=== PATIENT | female | born 1995 | race Caucasian/White ===

== ENCOUNTER 2017-01-25 16:46 | Observation (INO) | payer MEDICAID ==
[~2017-01-25] VITALS: Ht 162.6 cm; Wt 112.0 kg
[~2017-01-25 16:46] MED LIST: BENZ100C4 PO; BENZOTROPINE PO; CLON0.1T PO; DIPH25TA24 PO; LEVO75TA5 PO; MIRT7.5T8 PO; MULT-276 PO; MULT1TAB PO; NORG1TAB6 PO; TOPI100P PO; TOPI25CA5 PO; ZIPR40CA3 PO
[2017-01-25 17:36] LABS: HEMOGLOBIN 13.6 g/dL (11.7-16.4)
[2017-01-25 17:49] LABS: BLOOD UREA NITROGEN 10 mg/dL (7-18)
[2017-01-25 17:55] LABS: ACETAMINOPHEN < 2 mcg/mL (10-30)
[2017-01-25 18:25] LABS: DAU SCREEN DISCLAIMER
[2017-01-25] MEDS ORDERED: MULT1TAB50 PO (19:07)
[2017-01-25] MEDS ORDERED: TRAZODONE 50MG TABLET PO PRN (21:30)
[2017-01-25 21:51] VITALS: BP 135/82
[2017-01-26] MEDS: LEVOTHYROXINE 75 MCG TABLET PO SCH (06:26)
[2017-01-26 07:58] VITALS: BP 119/82
[2017-01-26] MEDS: MULTIVITAMIN 1 TABLET PO SCH (08:22)
[2017-01-26] MEDS: ZIPRASIDONE 40MG CAPSULE PO SCH (08:23)
[2017-01-26] MEDS ORDERED: DIPHENHYDRAMINE 50 MG CAPSULE PO PRN (18:00)
[2017-01-26 19:30] VITALS: BP 153/88
[2017-01-26] MEDS: ACETAMINOPHEN 325 MG TABLET PO PRN (21:06)
[2017-01-27] MEDS: LEVOTHYROXINE 75 MCG TABLET PO SCH (06:30)
[2017-01-27 08:15] VITALS: BP 118/81
[2017-01-27] MEDS: ZIPRASIDONE 40MG CAPSULE PO SCH (08:21)
[2017-01-27] MEDS: MULTIVITAMIN 1 TABLET PO SCH (08:21)
[2017-01-27] MEDS: ACETAMINOPHEN 325 MG TABLET PO PRN (08:25)
== END 2017-01-27 14:26 ==
LOC: ED 18:42 → EDIP 20:02 → 3E 21:46
PROVIDERS: ADMIT Internal Medicine; ATTEND Internal Medicine
DX: R45.851 Suicidal ideations (principal); F33.2 Major depressive disorder, recurrent severe without psychotic features; E66.01 Morbid (severe) obesity due to excess calories; E03.9 Hypothyroidism, unspecified; I10 Essential (primary) hypertension
CPT/HCPCS: 36415; 80048; 80307; 80329; 82040; 84439; 84443; 84703; 85025; 99285; G0378; G0480

== ENCOUNTER 2017-02-09 19:02 | Observation (INO) | payer MEDICAID ==
[~2017-02-09] VITALS: Ht 162.6 cm; Wt 120.0 kg
[~2017-02-09 19:02] MED LIST changes: +MULT1TAB50 PO
[2017-02-09 20:02] LABS: BLOOD UREA NITROGEN 7 mg/dL (7-18)
[2017-02-09 20:07] LABS: ACETAMINOPHEN < 2 mcg/mL (10-30)
[2017-02-09 20:42] LABS: DAU SCREEN DISCLAIMER
[2017-02-09] MEDS ORDERED: HALOPERIDOL 5 MG/ML IM PRN (22:30)
[2017-02-09] MEDS ORDERED: ACETAMINOPHEN 325 MG TABLET PO PRN (22:30)
[2017-02-09] MEDS ORDERED: TRAZODONE 50MG TABLET PO PRN (22:30)
[2017-02-09] MEDS ORDERED: POLYETHYLENE GLYCOL 17 GM PACKET PO PRN (22:30)
[2017-02-09] MEDS ORDERED: ONDANSETRON ODT 4 MG PO PRN (22:30)
[2017-02-09] MEDS ORDERED: BISACODYL 10 MG SUPP PR PRN (22:30)
[2017-02-09] MEDS ORDERED: DOCUSATE 100 MG CAPSULE PO PRN (22:30)
[2017-02-09] MEDS: CEFDINIR 300 MG CAPSULE PO SCH (23:20)
[2017-02-09] MEDS: BENZTROPINE 1 MG TABLET PO SCH (23:21)
[2017-02-10 07:38] VITALS: BP 134/94
[2017-02-10] MEDS: TOPIRAMATE 25 MG TABLET PO SCH (08:11)
[2017-02-10] MEDS: ZIPRASIDONE 40MG CAPSULE PO SCH (08:11)
[2017-02-10] MEDS: LEVOTHYROXINE 75 MCG TABLET PO SCH (09:20)
[2017-02-10] MEDS: CEFDINIR 300 MG CAPSULE PO SCH ×2 (10:52→21:05)
[2017-02-10 19:40] VITALS: BP 138/77
[2017-02-10] MEDS: BENZTROPINE 1 MG TABLET PO SCH (21:04)
[2017-02-11 07:54] VITALS: BP 111/76
[2017-02-11] MEDS: ZIPRASIDONE 40MG CAPSULE PO SCH (08:37)
[2017-02-11] MEDS: TOPIRAMATE 25 MG TABLET PO SCH (08:37)
[2017-02-11] MEDS: LEVOTHYROXINE 75 MCG TABLET PO SCH (08:37)
[2017-02-11] MEDS: CEFDINIR 300 MG CAPSULE PO SCH ×2 (11:36→23:58)
[2017-02-11 19:57] VITALS: BP 155/84
[2017-02-11] MEDS: BENZTROPINE 1 MG TABLET PO SCH (21:32)
[2017-02-12 07:33] VITALS: BP 113/78
[2017-02-12] MEDS: TOPIRAMATE 25 MG TABLET PO SCH (08:49)
[2017-02-12] MEDS: LEVOTHYROXINE 75 MCG TABLET PO SCH (08:50)
[2017-02-12] MEDS: ZIPRASIDONE 40MG CAPSULE PO SCH (08:50)
[2017-02-12] MEDS: CEFDINIR 300 MG CAPSULE PO SCH ×2 (11:26→23:00)
[2017-02-12 19:38] VITALS: BP 114/79
[2017-02-12] MEDS: BENZTROPINE 1 MG TABLET PO SCH (21:32)
[2017-02-13 08:30] VITALS: BP 124/84
[2017-02-13] MEDS: LEVOTHYROXINE 75 MCG TABLET PO SCH (09:00)
[2017-02-13] MEDS: TOPIRAMATE 25 MG TABLET PO SCH (09:00)
[2017-02-13] MEDS: ZIPRASIDONE 40MG CAPSULE PO SCH (09:00)
[2017-02-13] MEDS: CEFDINIR 300 MG CAPSULE PO SCH ×2 (11:02→23:34)
[2017-02-13 20:16] VITALS: BP 117/75
[2017-02-13] MEDS: BENZTROPINE 1 MG TABLET PO SCH (21:59)
[2017-02-14 07:25] VITALS: BP 132/84
[2017-02-14] MEDS: TOPIRAMATE 25 MG TABLET PO SCH (09:00)
[2017-02-14] MEDS: LEVOTHYROXINE 75 MCG TABLET PO SCH (09:16)
[2017-02-14] MEDS: ZIPRASIDONE 40MG CAPSULE PO SCH (09:16)
[2017-02-14 19:38] VITALS: BP 124/83
[2017-02-14] MEDS: BENZTROPINE 1 MG TABLET PO SCH (20:26)
[2017-02-15 07:23] VITALS: BP 99/58
[2017-02-15] MEDS: LEVOTHYROXINE 75 MCG TABLET PO SCH (08:00)
[2017-02-15] MEDS: TOPIRAMATE 25 MG TABLET PO SCH (08:00)
[2017-02-15] MEDS: ZIPRASIDONE 40MG CAPSULE PO SCH (08:01)
[2017-02-15 10:00] VITALS: BP 135/83
[2017-02-15 19:24] VITALS: BP 148/92
[2017-02-15 19:50] VITALS: BP 134/91
[2017-02-15] MEDS: BENZTROPINE 1 MG TABLET PO SCH (20:19)
[2017-02-16 07:27] VITALS: BP 141/84
[2017-02-16] MEDS: LEVOTHYROXINE 75 MCG TABLET PO SCH (07:59)
[2017-02-16] MEDS: ZIPRASIDONE 40MG CAPSULE PO SCH (07:59)
[2017-02-16] MEDS: TOPIRAMATE 25 MG TABLET PO SCH (07:59)
== END 2017-02-16 17:53 | disposition home or self-care (01) ==
LOC: ED 20:49 → EDIP 21:57 → 3E 22:57
PROVIDERS: ADMIT Internal Medicine; ATTEND Internal Medicine
DX: R45.851 Suicidal ideations (principal); F31.9 Bipolar disorder, unspecified; F41.9 Anxiety disorder, unspecified; N39.0 Urinary tract infection, site not specified; E03.9 Hypothyroidism, unspecified; E66.9 Obesity, unspecified; Z91.5 Personal history of self-harm; Z83.3 Family history of diabetes mellitus; Z82.49 Family history of ischemic heart disease and other diseases of the circulatory system
CPT/HCPCS: 36415; 80048; 80307; 80329; 81001; 82040; 84439; 84443; 84703; 85025; 87086; 93005; 99285; G0378; Q0177; G0480

== ENCOUNTER 2017-03-13 02:11 | Observation (INO) | payer MEDICAID ==
[~2017-03-13] VITALS: Ht 162.6 cm; Wt 115.0 kg
[2017-03-13 02:46] LABS: ASPARTATE AMINO TRANSFERASE 14 U/L (15-37); BLOOD UREA NITROGEN 6 mg/dL (7-18)
[2017-03-13 02:52] LABS: ACETAMINOPHEN < 2 mcg/mL (10-30)
[2017-03-13 03:07] LABS: DAU SCREEN DISCLAIMER
[2017-03-13] MEDS ORDERED: POLYETHYLENE GLYCOL 17 GM PACKET PO PRN (08:00)
[2017-03-13] MEDS ORDERED: ACETAMINOPHEN 325 MG TABLET PO PRN (08:00)
[2017-03-13] MEDS ORDERED: ONDANSETRON ODT 4 MG PO PRN (08:00)
[2017-03-13] MEDS ORDERED: HALOPERIDOL 5 MG/ML IM PRN (08:00)
[2017-03-13] MEDS ORDERED: LORazepam 2 MG/ML, 1ML IM PRN (08:00)
[2017-03-13] MEDS ORDERED: POTASSIUM CHLORIDE 20 MEQ TAB.ER.PRT PO ONE (08:30)
[2017-03-13] MEDS ORDERED: LEVOTHYROXINE 75 MCG TABLET PO SCH (09:00)
[2017-03-13] MEDS ORDERED: ZIPRASIDONE 40MG CAPSULE PO SCH (09:00)
[2017-03-13 09:50] VITALS: BP 129/78
[2017-03-13 20:35] VITALS: BP 139/85
[2017-03-13] MEDS ORDERED: BENZTROPINE 1 MG TABLET PO SCH (21:00)
== END 2017-03-13 23:01 ==
LOC: ED 02:47 → EDIP 06:26 → 3E 09:32
PROVIDERS: ADMIT Hospitalist; ATTEND Internal Medicine
DX: T74.21XA Adult sexual abuse, confirmed, initial encounter (principal); F41.1 Generalized anxiety disorder; F33.2 Major depressive disorder, recurrent severe without psychotic features; F31.9 Bipolar disorder, unspecified; E66.9 Obesity, unspecified; I10 Essential (primary) hypertension; F43.0 Acute stress reaction; E87.6 Hypokalemia; R74.8 Abnormal levels of other serum enzymes; E66.01 Morbid (severe) obesity due to excess calories; R82.90 Unspecified abnormal findings in urine; Y92.89 Other specified places as the place of occurrence of the external cause; Z65.4 Victim of crime and terrorism
CPT/HCPCS: 36415; 76700; 80053; 80307; 80329; 81001; 84439; 84443; 84703; 85025; 87086; 99285; G0378; G0480

== ENCOUNTER 2017-03-24 21:32 | Emergency (ER) | payer MEDICAID ==
[~2017-03-24] VITALS: Ht 162.6 cm; Wt 120.0 kg
[2017-03-24 21:35] VITALS: BP 137/84
[2017-03-27] MEDS ORDERED: FLUO20CA8 PO (10:44)
== END 2017-03-25 00:08 | disposition home or self-care (01) ==
LOC: ED 22:14
DX: L08.9 Local infection of the skin and subcutaneous tissue, unspecified (principal); S30.861A Insect bite (nonvenomous) of abdominal wall, initial encounter; S80.262A Insect bite (nonvenomous), left knee, initial encounter; S80.261A Insect bite (nonvenomous), right knee, initial encounter; S83.92XA Sprain of unspecified site of left knee, initial encounter; S83.91XA Sprain of unspecified site of right knee, initial encounter; I10 Essential (primary) hypertension; F20.9 Schizophrenia, unspecified; Z86.718 Personal history of other venous thrombosis and embolism; W57.XXXA Bitten or stung by nonvenomous insect and other nonvenomous arthropods, initial encounter; Y93.89 Activity, other specified; Y99.8 Other external cause status; Y92.89 Other specified places as the place of occurrence of the external cause
CPT/HCPCS: 99284

== ENCOUNTER 2017-04-27 18:06 | Observation (INO) | payer MEDICAID ==
[~2017-04-27] VITALS: Ht 172.7 cm; Wt 110.0 kg
[~2017-04-27 18:06] MED LIST changes: +FLUO20CA8 PO
[2017-04-27 18:35] LABS: DAU SCREEN DISCLAIMER
[2017-04-27 18:49] LABS: ASPARTATE AMINO TRANSFERASE 14 U/L (15-37); BLOOD UREA NITROGEN 14 mg/dL (7-18)
[2017-04-27 18:51] LABS: HCG UR OBC PASS
[2017-04-27 18:54] LABS: ACETAMINOPHEN < 2 mcg/mL (10-30)
[2017-04-27] MEDS ORDERED: TRAZODONE 50MG TABLET PO PRN (21:00)
[2017-04-27] MEDS ORDERED: ONDANSETRON ODT 4 MG PO PRN (21:00)
[2017-04-27] MEDS ORDERED: LORazepam 1MG TABLET PO PRN (21:00)
[2017-04-27] MEDS ORDERED: BENZTROPINE 1 MG TABLET PO PRN (21:00)
[2017-04-27] MEDS ORDERED: LORazepam 2 MG/ML, 1ML IM PRN (21:00)
[2017-04-27] MEDS ORDERED: DOCUSATE 100 MG CAPSULE PO PRN (21:00)
[2017-04-27] MEDS ORDERED: ZIPRASIDONE 20MG CAPSULE PO ONE (21:00)
[2017-04-27] MEDS ORDERED: LORazepam 1MG TABLET PO ONE (21:00)
[2017-04-27] MEDS ORDERED: DIPHENHYDRAMINE 50 MG CAPSULE PO PRN (21:00)
[2017-04-27] MEDS ORDERED: ACETAMINOPHEN 325 MG TABLET PO PRN (21:00)
[2017-04-27] MEDS ORDERED: LORazepam 1MG TABLET ONE (21:18)
[2017-04-27] MEDS ORDERED: ZIPRASIDONE 20MG CAPSULE ONE (21:18)
[2017-04-27 22:00] VITALS: BP 133/88
[2017-04-28 07:43] VITALS: BP 117/75
[2017-04-28] MEDS ORDERED: LEVOTHYROXINE 75 MCG TABLET PO SCH (09:00)
[2017-04-28] MEDS ORDERED: FLUOXETINE 20 MG CAPSULE PO SCH (09:00)
[2017-04-28] MEDS ORDERED: ZIPRASIDONE 40MG CAPSULE PO SCH (09:00)
== END 2017-04-28 16:02 ==
LOC: ED 18:53 → EDIP 20:58 → 3E 21:41
PROVIDERS: ADMIT Internal Medicine; ATTEND Internal Medicine
DX: R45.851 Suicidal ideations (principal); F41.9 Anxiety disorder, unspecified; F31.9 Bipolar disorder, unspecified; F43.10 Post-traumatic stress disorder, unspecified; I10 Essential (primary) hypertension
CPT/HCPCS: 36415; 80053; 80307; 80329; 81025; 84443; 85025; 99285; G0378; G0480

== ENCOUNTER 2017-05-10 09:51 | Observation (INO) | payer MEDICAID ==
[~2017-05-10] VITALS: Ht 175.3 cm; Wt 110.0 kg
[2017-05-10 11:24] LABS: DAU SCREEN DISCLAIMER
[2017-05-10 11:32] LABS: BLOOD UREA NITROGEN 13 mg/dL (7-18)
[2017-05-10 11:35] LABS: HCG UR OBC PASS
[2017-05-10 11:38] LABS: ACETAMINOPHEN < 2 mcg/mL (10-30)
[2017-05-10] MEDS ORDERED: POLYETHYLENE GLYCOL 17 GM PACKET PO PRN (14:30)
[2017-05-10] MEDS ORDERED: BISACODYL 10 MG SUPP PR PRN (14:30)
[2017-05-10] MEDS ORDERED: ONDANSETRON ODT 4 MG PO PRN (14:30)
[2017-05-10] MEDS ORDERED: DOCUSATE 100 MG CAPSULE PO PRN (14:30)
[2017-05-10] MEDS ORDERED: LEVOTHYROXINE 75 MCG TABLET PO SCH (20:30)
[2017-05-10] MEDS ORDERED: hydrOXyzine 50MG TABLET PO ONE (21:00)
[2017-05-10] MEDS: BENZTROPINE 1 MG TABLET PO SCH (22:14)
[2017-05-11] MEDS: FLUOXETINE 20 MG CAPSULE PO SCH (08:13)
[2017-05-11] MEDS: ZIPRASIDONE 40MG CAPSULE PO SCH (08:13)
[2017-05-11 08:47] LABS: PATH.CAST-FLAG NOT PRESENT; SPERM-FLAG NOT PRESENT; SRC-FLAG NOT PRESENT; XTAL-FLAG NOT PRESENT; YLC-FLAG NOT PRESENT
[2017-05-11] MEDS ORDERED: TOPIRAMATE 25 MG TABLET PO SCH (09:00)
[2017-05-11] MEDS: BENZTROPINE 1 MG TABLET PO SCH (21:18)
[2017-05-12] MEDS: FLUOXETINE 20 MG CAPSULE PO SCH (09:25)
[2017-05-12] MEDS: ZIPRASIDONE 40MG CAPSULE PO SCH (09:25)
[2017-05-12] MEDS ORDERED: HYDR50CA PO (10:54)
[2017-05-12] MEDS ORDERED: hydrOXyzine 10MG TABLET PO PRN (11:30)
[2017-05-12] MEDS ORDERED: ACETAMINOPHEN 325 MG TABLET PO PRN (11:30)
[2017-05-12 19:35] VITALS: BP 134/83
[2017-05-12] MEDS: BENZTROPINE 1 MG TABLET PO SCH (20:35)
[2017-05-13 07:24] VITALS: BP 115/74
[2017-05-13] MEDS: ZIPRASIDONE 40MG CAPSULE PO SCH (09:00)
[2017-05-13] MEDS: CITALOPRAM 20 MG TABLET PO SCH (09:00)
[2017-05-13 19:45] VITALS: BP 101/61
[2017-05-13] MEDS: BENZTROPINE 1 MG TABLET PO SCH (21:15)
[2017-05-14 07:25] VITALS: BP 135/95
[2017-05-14] MEDS: CITALOPRAM 20 MG TABLET PO SCH (09:12)
[2017-05-14] MEDS: ZIPRASIDONE 40MG CAPSULE PO SCH (09:12)
== END 2017-05-14 11:30 | disposition home or self-care (01) ==
LOC: ED 13:39 → EDIP 13:51 → 3E 05-12 18:50
PROVIDERS: ADMIT Internal Medicine; ATTEND Internal Medicine
DX: R45.851 Suicidal ideations (principal); F41.9 Anxiety disorder, unspecified; F31.9 Bipolar disorder, unspecified; F43.10 Post-traumatic stress disorder, unspecified; I10 Essential (primary) hypertension; F20.9 Schizophrenia, unspecified; F60.3 Borderline personality disorder
CPT/HCPCS: 36415; 80048; 80307; 80329; 81001; 81025; 82040; 84439; 84443; 85025; 87086; 99285; G0378; G0480

== ENCOUNTER 2017-05-31 12:01 | Emergency (ER) | payer MEDICAID ==
[~2017-05-31] VITALS: Ht 162.6 cm; Wt 117.2 kg
[~2017-05-31 12:01] MED LIST changes: +HYDR50CA PO
[2017-05-31] MEDS ORDERED: SODIUM CHLORIDE 0.9% 1,000ML IVBOLUS ONE (13:30)
[2017-05-31] MEDS ORDERED: MORPHINE SULFATE 4 MG/ML, 1ML IVPush PRN (13:30)
[2017-05-31] MEDS ORDERED: KETOROLAC 30 MG/1 ML IVPush ONE (13:30)
[2017-05-31] MEDS ORDERED: ONDANSETRON 2MG/ML, 2ML IVPush ONE (13:30)
[2017-05-31] MEDS ORDERED: SODIUM CHLORIDE FLUSH 10ML SYR IVF ONE (13:30)
[2017-05-31 13:32] LABS: HEMATOCRIT 44.6 % (34.6-47.8); HEMOGLOBIN 15.2 g/dL (11.7-16.4); WHITE BLOOD COUNT 7.6 x10^3/uL (4.5-13.2)
[2017-05-31] MEDS ORDERED: MORPHINE SULFATE 4 MG/ML, 1ML ONE (13:41)
[2017-05-31] MEDS ORDERED: ONDANSETRON 2MG/ML, 2ML ONE (13:41)
[2017-05-31] MEDS ORDERED: KETOROLAC 30 MG/1 ML ONE (13:41)
[2017-05-31 13:45] LABS: ASPARTATE AMINO TRANSFERASE 9 U/L (15-37); BLOOD UREA NITROGEN 16 mg/dL (7-18)
[2017-05-31 15:29] VITALS: BP 125/55
== END 2017-05-31 16:49 | disposition home or self-care (01) ==
LOC: ED 15:02
DX: N12 Tubulo-interstitial nephritis, not specified as acute or chronic (principal); I10 Essential (primary) hypertension
CPT/HCPCS: 36415; 80053; 81001; 83690; 85025; 87086; 96361; 96374; 96375; 99285; J1885; J2405; J7030

== ENCOUNTER 2017-06-29 10:02 | Emergency (ER) | payer MEDICAID ==
[~2017-06-29] VITALS: Ht 162.6 cm; Wt 115.4 kg
[~2017-06-29 10:02] MED LIST changes: +BENZ100C17 PO; -BENZ100C4 PO
[2017-06-29 10:14] VITALS: BP 137/87
[2017-06-29] MEDS ORDERED: BENZ0.5T PO (11:29)
[2017-06-29] MEDS ORDERED: TOPI50TA8 PO (11:31)
[2017-06-29] MEDS ORDERED: ONDANSETRON ODT 4 MG PO ONE (12:30)
[2017-06-29] MEDS ORDERED: ONDANSETRON ODT 4 MG ONE (12:42)
[2017-06-29 12:47] LABS: HEMATOCRIT 45.3 % (34.6-47.8); HEMOGLOBIN 15.4 g/dL (11.7-16.4); WHITE BLOOD COUNT 9.4 x10^3/uL (4.5-13.2)
[2017-06-29 13:04] LABS: ASPARTATE AMINO TRANSFERASE 14 U/L (15-37); BLOOD UREA NITROGEN 9 mg/dL (7-18)
== END 2017-06-29 14:01 | disposition home or self-care (01) ==
LOC: ED 11:50
DX: R10.31 Right lower quadrant pain (principal); F41.9 Anxiety disorder, unspecified; I10 Essential (primary) hypertension
CPT/HCPCS: 36415; 76830; 80053; 81001; 83690; 84703; 85025; 87086; 99285; Q0162

== ENCOUNTER 2017-10-25 20:39 | Observation (INO) | payer MEDICAID ==
[~2017-10-25] VITALS: Ht 162.6 cm; Wt 120.0 kg
[~2017-10-25 20:39] MED LIST changes: +BENZ-17 PO; +BENZ0.5T PO; -BENZ100C17 PO; +GABA100C PO; +LEVO75TA PO; +TOPI50TA8 PO; +ZIPR20CA2 PO
[2017-10-25] MEDS ORDERED: PANT20TA3 PO (20:58)
[2017-10-25] MEDS ORDERED: TOPI15CA PO (20:58)
[2017-10-25] MEDS ORDERED: IBUP200C5 PO (20:59)
[2017-10-25] MEDS ORDERED: DIPH12.532 PO (20:59)
[2017-10-25] MEDS ORDERED: HYDR25CA94 PO (20:59)
[2017-10-25 21:30] LABS: AMPHETAMINE SCREEN, URINE Negative (Negative); BARBITURATE SCREEN, URINE Negative (Negative); BENZODIAZEPINE SCREEN, URINE Negative (Negative); CANNABINOID SCREEN, URINE Negative (Negative); COCAINE SCREEN, URINE Negative (Negative); METHADONE SCREEN, URINE Negative (Negative); OPIATE SCREEN, URINE Negative (Negative)
[2017-10-25 21:33] LABS: MD SCAN; MEAN CORPUSCULAR HEMOGLOBIN 31.2 pg (27.0-34.8); MEAN CORPUSCULAR HGB CONC 33.8 g/dL (32.4-35.8); MEAN CORPUSCULAR VOLUME 92.1 fL (80-100); MEAN PLATELET VOLUME 11.8 fL (7.4-10.4); PLATELET COUNT 185 x10^3/uL (130-400); RED BLOOD COUNT 4.43 x10^6/uL (3.82-5.3); RED CELL DISTRIBUTION WIDTH 13.5 % (9.6-15.2)
[2017-10-25 21:34] LABS: ALBUMIN 3.3 g/dL (3.4-5.0); ANION GAP 9 mmol/L (5-15); BASOPHILS # (AUTO) 0.12 x10^3/uL (0-0.3); BASOPHILS % (AUTO) 1 % (0-1); CHLORIDE 112 mmol/L (98-107); CREATININE 0.81 mg/dL (0.55-1.02); EOSINOPHILS # (AUTO) 0.44 x10^3/uL (0-0.8); EOSINOPHILS % (AUTO) 3 % (1-7); LYMPHOCYTES % (AUTO) 40 % (22-44); MONOCYTES # (AUTO) 0.98 x10^3/uL (0-1.4); MONOCYTES % (AUTO) 7 % (2-9); NEUTROPHILS # (AUTO) 6.31 x10^3/uL (1.8-8.0); NEUTROPHILS % (AUTO) 48 % (42-75)
[2017-10-25 21:35] LABS: SALICYLATE LEVEL < 1.7 mg/dL (2.8-20.0)
[2017-10-25 21:36] LABS: ACETAMINOPHEN < 2 mcg/mL (10-30)
[2017-10-26 02:10] LABS: FREE T4 (FREE THYROXINE) 1.05 ng/dL (0.76-1.46); THYROID STIMULATING HORMONE 2.96 mIU/L (0.358-3.740)
[2017-10-26 05:00] LABS: MICROSCOPIC NOT IND
[2017-10-26 05:02] LABS: CULTURE INDICATED? NO
[2017-10-26] MEDS ORDERED: ACETAMINOPHEN 325 MG TABLET ONE (13:35)
[2017-10-26] MEDS ORDERED: ACETAMINOPHEN 325 MG TABLET PO PRN (14:00)
[2017-10-26] MEDS ORDERED: LORazepam 1MG TABLET PO PRN (14:00)
[2017-10-26] MEDS ORDERED: BACITRACIN ZINC OINT 500U/GM, 0.9 GM ONE (18:10)
[2017-10-26 19:22] VITALS: BP 111/77
== END 2017-10-26 19:49 ==
LOC: ED 22:59 → EDIP 23:04 → ED 23:29
PROVIDERS: ADMIT Internal Medicine; ATTEND Internal Medicine
DX: R45.851 Suicidal ideations (principal); F33.9 Major depressive disorder, recurrent, unspecified; E03.9 Hypothyroidism, unspecified; F99 Mental disorder, not otherwise specified
CPT/HCPCS: 36415; 80048; 80307; 80329; 81003; 82040; 84439; 84443; 84703; 85025; 99285; G0378; G0480

== ENCOUNTER 2017-12-22 13:23 | Observation (INO) | payer MEDICAID ==
[~2017-12-22] VITALS: Ht 162.6 cm; Wt 115.5 kg
[~2017-12-22 13:23] MED LIST changes: +BUPR200T31 PO; +CITA10TA4 PO; +DIPH12.532 PO; +GABA300C10 PO; +HYDR25CA94 PO; +IBUP200C5 PO; +PANT20TA3 PO; +TOPI15CA PO
[2017-12-22 14:18] LABS: BASOPHILS # (AUTO) 0.11 x10^3/uL (0-0.3); BASOPHILS % (AUTO) 1 % (0-1); EOSINOPHILS % (AUTO) 2 % (1-7); LYMPHOCYTES % (AUTO) 28 % (22-44); MD NO; MEAN CORPUSCULAR HEMOGLOBIN 31.6 pg (27.0-34.8); MEAN CORPUSCULAR HGB CONC 34.3 g/dL (32.4-35.8); MEAN CORPUSCULAR VOLUME 92.1 fL (80-100); MEAN PLATELET VOLUME 10.4 fL (7.4-10.4); MONOCYTES % (AUTO) 6 % (2-9); NEUTROPHILS # (AUTO) 7.72 x10^3/uL (1.8-8.0); NEUTROPHILS % (AUTO) 64 % (42-75); PLATELET COUNT 207 x10^3/uL (130-400); RED BLOOD COUNT 4.71 x10^6/uL (3.82-5.3); RED CELL DISTRIBUTION WIDTH 13.7 % (9.6-15.2)
[2017-12-22 14:28] LABS: ALBUMIN 3.7 g/dL (3.4-5.0); ANION GAP 7 mmol/L (5-15); CALCIUM 9.1 mg/dL (8.5-10.1); CHLORIDE 108 mmol/L (98-107)
[2017-12-22 14:30] LABS: SALICYLATE LEVEL < 1.7 mg/dL (2.8-20.0)
[2017-12-22 14:34] LABS: ALANINE AMINOTRANSFERASE 34 U/L (12-78); ALKALINE PHOSPHATASE 157 U/L (45-117); BILIRUBIN,TOTAL 0.5 mg/dL (0.2-1.0); CREATININE 0.89 mg/dL (0.55-1.02); TOTAL PROTEIN 7.9 g/dL (6.4-8.2)
[2017-12-22 14:35] LABS: ACETAMINOPHEN < 2 mcg/mL (10-30)
[2017-12-22 17:10] LABS: AMPHETAMINE SCREEN, URINE Negative (Negative); BARBITURATE SCREEN, URINE Negative (Negative); BENZODIAZEPINE SCREEN, URINE Negative (Negative); CANNABINOID SCREEN, URINE Negative (Negative); COCAINE SCREEN, URINE Negative (Negative); METHADONE SCREEN, URINE Negative (Negative); OPIATE SCREEN, URINE Negative (Negative)
[2017-12-22] MEDS ORDERED: LORazepam 1MG TABLET PO ONE (20:00)
[2017-12-22] MEDS ORDERED: LORazepam 1MG TABLET ONE (20:00)
[2017-12-22] MEDS ORDERED: LORazepam 2 MG/ML, 1ML IM PRN (20:30)
[2017-12-22] MEDS ORDERED: ONDANSETRON ODT 4 MG PO PRN (20:30)
[2017-12-22] MEDS ORDERED: OLANZAPINE 5 MG TABLET PO PRN (20:30)
[2017-12-22] MEDS ORDERED: OLANZAPINE 10 MG INJ IM PRN (20:30)
[2017-12-22 21:25] VITALS: BP 145/92
[2017-12-23 07:40] VITALS: BP 137/79
[2017-12-23] MEDS: ACETAMINOPHEN 325 MG TABLET PO PRN (14:37)
[2017-12-23] MEDS: LORazepam 1MG TABLET PO PRN (17:32)
[2017-12-23 20:00] VITALS: BP 119/76
[2017-12-24 07:30] VITALS: BP 123/84
[2017-12-24 19:45] VITALS: BP 115/70
[2017-12-24] MEDS: LORazepam 1MG TABLET PO PRN (21:45)
[2017-12-25 08:22] VITALS: BP 125/87
[2017-12-25] MEDS: LORazepam 1MG TABLET PO PRN (18:09)
[2017-12-25] MEDS: ACETAMINOPHEN 325 MG TABLET PO PRN (18:09)
[2017-12-26 07:00] VITALS: BP 127/84
[2017-12-26 19:33] VITALS: BP 118/71
[2017-12-26] MEDS: ACETAMINOPHEN 325 MG TABLET PO PRN (20:17)
[2017-12-26] MEDS: LORazepam 1MG TABLET PO PRN (20:17)
[2017-12-27] MEDS: LORazepam 1MG TABLET PO PRN (04:58)
[2017-12-27 09:07] VITALS: BP 117/77
[2017-12-27 19:35] VITALS: BP 167/91
[2017-12-27 19:47] VITALS: BP 136/82
[2017-12-28 08:18] VITALS: BP_SYST 100; BP_SYST 127; BP_DIAS 47; BP_DIAS 84
[2017-12-28 20:21] VITALS: BP 122/82
[2017-12-28] MEDS: GABAPENTIN 100 MG CAPSULE PO SCH (20:24)
[2017-12-29] MEDS: LEVOTHYROXINE 75 MCG TABLET PO SCH (08:00)
[2017-12-29 08:11] VITALS: BP 120/82
[2017-12-29] MEDS: CITALOPRAM 10 MG TABLET PO SCH (08:24)
[2017-12-29] MEDS: GABAPENTIN 100 MG CAPSULE PO SCH ×2 (08:24→20:59)
[2017-12-29 19:42] VITALS: BP 138/84
[2017-12-29] MEDS: LORazepam 1MG TABLET PO PRN (21:00)
[2017-12-30] MEDS: LEVOTHYROXINE 75 MCG TABLET PO SCH (07:47)
[2017-12-30 08:01] VITALS: BP 130/86
[2017-12-30] MEDS: GABAPENTIN 100 MG CAPSULE PO SCH ×2 (08:14→20:16)
[2017-12-30] MEDS: CITALOPRAM 10 MG TABLET PO SCH (08:14)
[2017-12-30] MEDS: LORazepam 1MG TABLET PO PRN (14:09)
[2017-12-30 21:11] VITALS: BP 165/90
[2017-12-31] MEDS: LEVOTHYROXINE 75 MCG TABLET PO SCH (07:00)
[2017-12-31 07:52] VITALS: BP 122/79
[2017-12-31] MEDS: GABAPENTIN 100 MG CAPSULE PO SCH ×2 (09:09→20:26)
[2017-12-31] MEDS: CITALOPRAM 10 MG TABLET PO SCH (09:09)
[2017-12-31 19:25] VITALS: BP 152/84
[2017-12-31] MEDS: LORazepam 1MG TABLET PO PRN (20:27)
[2018-01-01] MEDS: CITALOPRAM 10 MG TABLET PO SCH (07:29)
[2018-01-01] MEDS: GABAPENTIN 100 MG CAPSULE PO SCH ×2 (07:29→20:19)
[2018-01-01] MEDS: LEVOTHYROXINE 75 MCG TABLET PO SCH (07:29)
[2018-01-01 08:38] VITALS: BP 110/77
[2018-01-01 20:12] VITALS: BP 123/63
[2018-01-01] MEDS: LORazepam 1MG TABLET PO PRN (20:19)
[2018-01-02] MEDS: LEVOTHYROXINE 75 MCG TABLET PO SCH (07:00)
[2018-01-02 08:54] VITALS: BP 141/84
[2018-01-02] MEDS: GABAPENTIN 100 MG CAPSULE PO SCH ×2 (09:30→20:31)
[2018-01-02] MEDS: CITALOPRAM 10 MG TABLET PO SCH (09:30)
[2018-01-02 20:22] VITALS: BP 118/89
[2018-01-02] MEDS: LORazepam 1MG TABLET PO PRN (20:31)
[2018-01-03] MEDS: LEVOTHYROXINE 75 MCG TABLET PO SCH (07:00)
[2018-01-03 08:00] VITALS: BP 140/90
[2018-01-03] MEDS: CITALOPRAM 10 MG TABLET PO SCH (08:05)
[2018-01-03] MEDS: GABAPENTIN 100 MG CAPSULE PO SCH ×2 (08:05→20:41)
[2018-01-03 19:58] VITALS: BP 152/79
[2018-01-04] MEDS: LEVOTHYROXINE 75 MCG TABLET PO SCH (06:07)
[2018-01-04 08:26] VITALS: BP 124/83
[2018-01-04] MEDS: GABAPENTIN 100 MG CAPSULE PO SCH ×2 (09:42→20:28)
[2018-01-04] MEDS: CITALOPRAM 10 MG TABLET PO SCH (09:42)
[2018-01-04 19:56] VITALS: BP 119/82
[2018-01-04] MEDS: LORazepam 1MG TABLET PO PRN (20:28)
[2018-01-05 08:28] VITALS: BP 125/83
[2018-01-05] MEDS: CITALOPRAM 10 MG TABLET PO SCH (08:47)
[2018-01-05] MEDS: LEVOTHYROXINE 75 MCG TABLET PO SCH (08:47)
[2018-01-05] MEDS: GABAPENTIN 100 MG CAPSULE PO SCH (08:47)
[2018-01-05] MEDS: ACETAMINOPHEN 325 MG TABLET PO PRN (09:51)
== END 2018-01-05 13:00 ==
LOC: ED 15:18 → SUATTDRO 20:07 → INTOOBSV 20:20 → EDIP 20:20 → OBSVTOIN 20:20 → 2N 21:22 → 3E 12-29 17:46
PROVIDERS: ADMIT Hospitalist; ATTEND Family Medicine
DX: F43.20 Adjustment disorder, unspecified (principal); R45.851 Suicidal ideations; F33.9 Major depressive disorder, recurrent, unspecified; R45.850 Homicidal ideations; F43.10 Post-traumatic stress disorder, unspecified; E03.9 Hypothyroidism, unspecified; E86.0 Dehydration; Z91.5 Personal history of self-harm
CPT/HCPCS: 36415; 80053; 80307; 80329; 84703; 85025; 96372; 99285; G0378; J2060; G0480

== ENCOUNTER 2018-08-10 12:05 | Observation (INO) | payer MEDICAID, MEDICARE, OTHER ==
[~2018-08-10] VITALS: Ht 162.6 cm; Wt 110.0 kg
[~2018-08-10 12:05] MED LIST changes: -BENZ0.5T PO; +BENZ0.5T35 PO; +IBUP-1623 PO; -IBUP200C5 PO
[2018-08-10 12:35] LABS: BASOPHILS # (AUTO) 0.05 x10^3/uL (0-0.1); BASOPHILS % (AUTO) 0 % (0-1); EOSINOPHILS # (AUTO) 0.15 x10^3/uL (0-0.4); EOSINOPHILS % (AUTO) 1 % (1-7); LYMPHOCYTES # (AUTO) 3.49 x10^3/uL (1-3.4); LYMPHOCYTES % (AUTO) 30 % (22-44); MD NO; MEAN CORPUSCULAR HEMOGLOBIN 30.7 pg (27.0-34.8); MEAN CORPUSCULAR HGB CONC 33.8 g/dL (32.4-35.8); MEAN CORPUSCULAR VOLUME 90.6 fL (80-100); MEAN PLATELET VOLUME 11.9 fL (7.4-10.4); MONOCYTES # (AUTO) 0.74 x10^3/uL (0.2-0.8); MONOCYTES % (AUTO) 6 % (2-9); NEUTROPHILS % (AUTO) 63 % (42-75); PLATELET COUNT 214 x10^3/uL (130-400); RED BLOOD COUNT 4.79 x10^6/uL (3.82-5.3); RED CELL DISTRIBUTION WIDTH 13.4 % (9.6-15.2)
[2018-08-10 12:39] LABS: CHLORIDE 108 mmol/L (98-107)
[2018-08-10 12:44] LABS: ANION GAP 7 mmol/L (5-15); CALCIUM 9.5 mg/dL (8.5-10.1); CREATININE 0.85 mg/dL (0.55-1.02); SALICYLATE LEVEL 1.9 mg/dL (2.8-20.0)
[2018-08-10] MEDS ORDERED: LAMO25TB7 PO (12:46)
[2018-08-10] MEDS ORDERED: IBUP-1623 PO (12:46)
[2018-08-10] MEDS ORDERED: BUPR150T73 PO (12:46)
[2018-08-10] MEDS ORDERED: OMEP-110 PO (12:46)
[2018-08-10 12:57] LABS: ACETAMINOPHEN < 2 mcg/mL (10-30)
[2018-08-10 13:04] LABS: HCG UR SG 1.025 (1.003-1.030)
[2018-08-10 13:22] LABS: AMPHETAMINE SCREEN, URINE Negative (Negative); BARBITURATE SCREEN, URINE Negative (Negative); BENZODIAZEPINE SCREEN, URINE Negative (Negative); CANNABINOID SCREEN, URINE Negative (Negative); COCAINE SCREEN, URINE Negative (Negative); METHADONE SCREEN, URINE Negative (Negative); OPIATE SCREEN, URINE Negative (Negative)
[2018-08-10] MEDS ORDERED: LORazepam 1MG TABLET ONE (13:44)
[2018-08-10] MEDS ORDERED: LORazepam 1MG TABLET PO ONE (14:00)
[2018-08-10] MEDS ORDERED: ONDANSETRON ODT 4 MG PO PRN (16:30)
[2018-08-10 18:35] VITALS: BP 135/90
[2018-08-10 19:42] VITALS: BP 136/81
[2018-08-10] MEDS: ACETAMINOPHEN 325 MG TABLET PO PRN (21:17)
[2018-08-11 07:58] VITALS: BP 136/80
[2018-08-11] MEDS: ACETAMINOPHEN 325 MG TABLET PO PRN (15:35)
[2018-08-11 19:21] VITALS: BP 119/73
[2018-08-11] MEDS: LAMOTRIGINE 25 MG TABLET PO SCH (21:07)
[2018-08-12 08:17] VITALS: BP 120/57
[2018-08-12] MEDS: BUPROPION 75 MG TABLET PO SCH (08:32)
[2018-08-12] MEDS: LORazepam 1MG TABLET PO PRN ×2 (08:37→20:03)
[2018-08-12 19:44] VITALS: BP 134/83
[2018-08-12] MEDS: LAMOTRIGINE 25 MG TABLET PO SCH (20:03)
[2018-08-13 08:00] VITALS: BP 138/89
[2018-08-13] MEDS: LORazepam 1MG TABLET PO PRN (08:20)
[2018-08-13] MEDS: BUPROPION 75 MG TABLET PO SCH (08:20)
[2018-08-13] MEDS: ACETAMINOPHEN 325 MG TABLET PO PRN (09:18)
[2018-08-13 19:51] VITALS: BP 130/86
[2018-08-13] MEDS: LAMOTRIGINE 25 MG TABLET PO SCH (20:03)
[2018-08-14 07:50] VITALS: BP 115/79
[2018-08-14] MEDS: BUPROPION 75 MG TABLET PO SCH (08:39)
[2018-08-14] MEDS: LORazepam 1MG TABLET PO PRN ×2 (10:15→22:52)
[2018-08-14 19:35] VITALS: BP 119/83
[2018-08-14] MEDS: LAMOTRIGINE 25 MG TABLET PO SCH (19:51)
[2018-08-15 08:20] VITALS: BP 113/80
[2018-08-15] MEDS: BUPROPION 75 MG TABLET PO SCH (08:32)
[2018-08-15 19:06] VITALS: BP 129/87
[2018-08-15] MEDS: LAMOTRIGINE 25 MG TABLET PO SCH (20:07)
[2018-08-15] MEDS: LORazepam 1MG TABLET PO PRN (21:51)
[2018-08-15] MEDS: ACETAMINOPHEN 325 MG TABLET PO PRN (21:51)
[2018-08-16 07:35] VITALS: BP 113/78
[2018-08-16] MEDS: BUPROPION 75 MG TABLET PO SCH (08:37)
== END 2018-08-16 13:54 | disposition home or self-care (01) ==
LOC: ED 13:38 → EDIP 13:39 → ED 13:56 → 2N 18:47
PROVIDERS: ADMIT Internal Medicine; ATTEND Internal Medicine
DX: R45.851 Suicidal ideations (principal); R45.850 Homicidal ideations; E03.9 Hypothyroidism, unspecified; F31.9 Bipolar disorder, unspecified; F41.1 Generalized anxiety disorder; F60.3 Borderline personality disorder
CPT/HCPCS: 36415; 80048; 80307; 80329; 81025; 82040; 84443; 85025; 99285; G0378; G0480

== ENCOUNTER 2018-12-05 17:43 | Emergency (ER) | payer MEDICARE, MEDICAID ==
[~2018-12-05] VITALS: Ht 167.6 cm; Wt 119.0 kg
[~2018-12-05 17:43] MED LIST changes: +BUPR150T73 PO; -CLON0.1T PO; +CLON0.1T22 PO; +LAMO25TB7 PO; +OMEP-110 PO
[2018-12-05 17:47] VITALS: BP 131/75
--- NOTE | 2018-12-05 18:00 | NUR ---
PT A&OX4, RESP EVEN & UNLABORED, SPEECH CLEAR. PT STATES "I'M NOT HERE ON A LEGAL AND I WANT TO GO HOME" WHEN ASKED ABOUT SI, PT STATED SHE WAS JUST UNDER STRESS AND HAD SI "AT THE MOMENT" "I DON'T HAVE IT NOW". ADMITS TO PAST SI. PT ASKED "DO I HAVE TO PEE IN A CUP? 'ETIENNE I HAVE TO PEE NOW". PT IN HOSP GOWN & BRA, AMBULATORY TO BR W/ STEADY GAIT. PERSONAL BELONGINGS BAGGED, EXCEPT FOR PURPLE FLEECE BLANKET AND RAINBOW COLORED STUFFED BEAR. BELONGINGS WILL BE PLACED IN ED LOCKER.
--- NOTE | 2018-12-05 18:05 | NUR ---
PT RETURNED TO ED ROOM 3 W/OUT INCIDENT. 10ML VOIDED URINE IN SPECIMEN CUP. PT DISPLEASED THAT BELONGINGS HAVE BEEN BAGGED. STATES " SOON THE DOCTOR CHECKS ME OUT, I'M LEAVING" INFORMED PT THAT SHE'S BEEN THROUGH THE ROUTINE ENOUGH THAT SHE KNOWS HOW IT WORKS.
[2018-12-05] MEDS ORDERED: BUPR150T13 PO (18:09)
--- NOTE | 2018-12-05 19:01 | NUR ---
[facility] ORDER CANCELLED EARLIER PER TORSTEN KEARNS. PT TO BE DISCHARGED. PT BELONGINGS RETRIEVED AND RETURNED TO PT.
== END 2018-12-05 19:06 | disposition home or self-care (01) ==
LOC: ED 19:00
DX: F32.0 Major depressive disorder, single episode, mild (principal); F41.1 Generalized anxiety disorder; E03.9 Hypothyroidism, unspecified; I10 Essential (primary) hypertension
CPT/HCPCS: 99283

== ENCOUNTER 2019-08-22 12:41 | Inpatient (IN) | payer MEDICARE, OTHER ==
[~2019-08-22] VITALS: Ht 167.6 cm; Wt 114.0 kg
[~2019-08-22 12:41] MED LIST changes: +BUPR150T13 PO; -TOPI15CA PO; +TOPI15CA10 PO
[2019-08-22] MEDS ORDERED: TRAZ-137 PO (13:46)
[2019-08-22] MEDS ORDERED: RISP2TAB3 PO (13:46)
[2019-08-22 13:54] LABS: ALBUMIN 3.7 g/dL (3.4-5.0); ANION GAP 5 mmol/L (5-15); CALCIUM 9.1 mg/dL (8.5-10.1); CHLORIDE 108 mmol/L (98-107)
[2019-08-22] MEDS ORDERED: KETOROLAC 60 MG/2 ML ONE (13:54)
[2019-08-22 13:55] LABS: CREATININE 0.76 mg/dL (0.55-1.02)
[2019-08-22] MEDS ORDERED: ONDANSETRON ODT 4 MG ONE (13:55)
[2019-08-22] MEDS ORDERED: KETOROLAC 30 MG/1 ML IM ONE (14:00)
[2019-08-22] MEDS ORDERED: ONDANSETRON ODT 4 MG PO ONE (14:00)
[2019-08-22 14:06] LABS: BASOPHILS # (AUTO) 0.07 x10^3/uL (0-0.1); BASOPHILS % (AUTO) 1 % (0-1); EOSINOPHILS # (AUTO) 0.27 x10^3/uL (0-0.4); EOSINOPHILS % (AUTO) 2 % (1-7); LYMPHOCYTES # (AUTO) 3.21 x10^3/uL (1-3.4); LYMPHOCYTES % (AUTO) 26 % (22-44); MD NO; MEAN CORPUSCULAR HEMOGLOBIN 31.8 pg (27.0-34.8); MEAN CORPUSCULAR HGB CONC 33.4 g/dL (32.4-35.8); MEAN PLATELET VOLUME 10.7 fL (7.4-10.4); MONOCYTES # (AUTO) 0.78 x10^3/uL (0.2-0.8); MONOCYTES % (AUTO) 6 % (2-9); NEUTROPHILS # (AUTO) 7.83 x10^3/uL (1.8-6.8); NEUTROPHILS % (AUTO) 64 % (42-75); PLATELET COUNT 212 x10^3/uL (130-400); RED BLOOD COUNT 4.71 x10^6/uL (3.82-5.3)
[2019-08-22 14:48] LABS: HCG UR SG 1.018 (1.003-1.030); MICROSCOPIC AUTO
[2019-08-22 14:50] LABS: CULTURE INDICATED? YES
[2019-08-22] MEDS ORDERED: CEFTRIAXONE PMX 2GM/50ML 50 ML IV ONE (15:30)
[2019-08-22] MEDS ORDERED: CEFTRIAXONE PMX 2GM/50ML 50 ML ONE (15:34)
[2019-08-22] MEDS ORDERED: IBUPROFEN 600 MG TABLET PO PRN (16:00)
[2019-08-22] MEDS ORDERED: SODIUM CHLORIDE 0.9% 1,000 ML IV SCH (16:00)
[2019-08-22] MEDS: CEFTRIAXONE PMX 2GM/50ML 50 ML IV SCH (16:00)
[2019-08-22] MEDS ORDERED: ONDANSETRON 2MG/ML, 2ML IVPush PRN (16:00)
[2019-08-22 17:05] VITALS: BP 143/88
[2019-08-22 17:33] VITALS: BP 143/88
[2019-08-22] MEDS: SODIUM CHLORIDE 0.9% 1,000 ML IV SCH (17:55)
[2019-08-22 19:19] VITALS: BP 140/88
[2019-08-22] MEDS: TRAZODONE 50MG TABLET PO SCH (20:59)
[2019-08-23 00:46] VITALS: BP 133/78
[2019-08-23] MEDS: SODIUM CHLORIDE 0.9% 1,000 ML IV SCH ×2 (03:41→14:18)
[2019-08-23 05:53] LABS: BASOPHILS # (AUTO) 0.06 x10^3/uL (0-0.1); BASOPHILS % (AUTO) 1 % (0-1); EOSINOPHILS # (AUTO) 0.42 x10^3/uL (0-0.4); EOSINOPHILS % (AUTO) 4 % (1-7); LYMPHOCYTES # (AUTO) 2.98 x10^3/uL (1-3.4); LYMPHOCYTES % (AUTO) 25 % (22-44); MD NO; MEAN CORPUSCULAR HEMOGLOBIN 32.1 pg (27.0-34.8); MEAN CORPUSCULAR HGB CONC 33.4 g/dL (32.4-35.8); MEAN CORPUSCULAR VOLUME 96.1 fL (80-100); MEAN PLATELET VOLUME 10.9 fL (7.4-10.4); MONOCYTES # (AUTO) 0.85 x10^3/uL (0.2-0.8); MONOCYTES % (AUTO) 7 % (2-9); NEUTROPHILS # (AUTO) 7.42 x10^3/uL (1.8-6.8); NEUTROPHILS % (AUTO) 63 % (42-75); PLATELET COUNT 194 x10^3/uL (130-400); RED BLOOD COUNT 4.53 x10^6/uL (3.82-5.3); RED CELL DISTRIBUTION WIDTH 14.1 % (9.6-15.2)
[2019-08-23 05:59] LABS: ANION GAP 6 mmol/L (5-15); CHLORIDE 110 mmol/L (98-107); CREATININE 0.84 mg/dL (0.55-1.02)
[2019-08-23] MEDS: RISPERIDONE 2 MG TABLET PO SCH (08:12)
[2019-08-23 08:50] VITALS: BP 135/80
[2019-08-23 14:09] VITALS: BP 135/80
[2019-08-23] MEDS: CEFTRIAXONE PMX 2GM/50ML 50 ML IV SCH (16:39)
[2019-08-23 19:32] VITALS: BP 135/84
[2019-08-23] MEDS: TRAZODONE 50MG TABLET PO SCH (19:41)
[2019-08-24 00:56] VITALS: BP 118/79
[2019-08-24] MEDS: SODIUM CHLORIDE 0.9% 1,000 ML IV SCH ×2 (02:11→12:00)
[2019-08-24 05:54] LABS: BASOPHILS # (AUTO) 0.05 x10^3/uL (0-0.1); BASOPHILS % (AUTO) 1 % (0-1); EOSINOPHILS # (AUTO) 0.47 x10^3/uL (0-0.4); EOSINOPHILS % (AUTO) 5 % (1-7); LYMPHOCYTES # (AUTO) 3.19 x10^3/uL (1-3.4); LYMPHOCYTES % (AUTO) 34 % (22-44); MD NO; MEAN CORPUSCULAR HEMOGLOBIN 32.5 pg (27.0-34.8); MEAN CORPUSCULAR HGB CONC 33.7 g/dL (32.4-35.8); MEAN CORPUSCULAR VOLUME 96.3 fL (80-100); MEAN PLATELET VOLUME 10.9 fL (7.4-10.4); MONOCYTES # (AUTO) 0.66 x10^3/uL (0.2-0.8); MONOCYTES % (AUTO) 7 % (2-9); NEUTROPHILS # (AUTO) 5.08 x10^3/uL (1.8-6.8); NEUTROPHILS % (AUTO) 54 % (42-75); PLATELET COUNT 183 x10^3/uL (130-400); RED BLOOD COUNT 4.19 x10^6/uL (3.82-5.3)
[2019-08-24 08:03] VITALS: BP 139/79
[2019-08-24] MEDS: RISPERIDONE 2 MG TABLET PO SCH (08:47)
[2019-08-24] MEDS ORDERED: ONDA4TAB13 SL (08:53)
[2019-08-24] MEDS ORDERED: KETO10TA PO ×3 (08:53→16:55)
[2019-08-24] MEDS ORDERED: CEFD300C37 PO (08:53)
[2019-08-24 12:19] VITALS: BP 126/85
== END 2019-08-24 16:02 | disposition home or self-care (01) | DRG 871 ==
LOC: ED 15:25 → EDIP 15:26 → 3N 16:44
PROVIDERS: ADMIT Family Medicine; ATTEND Internal Medicine
DX: A41.9 Sepsis, unspecified organism (principal); K22.6 Gastro-esophageal laceration-hemorrhage syndrome; N10 Acute pyelonephritis; Z68.41 Body mass index [BMI] 40.0-44.9, adult; E66.01 Morbid (severe) obesity due to excess calories; B96.20 Unspecified Escherichia coli [E. coli] as the cause of diseases classified elsewhere; B96.89 Other specified bacterial agents as the cause of diseases classified elsewhere; E03.9 Hypothyroidism, unspecified; F12.90 Cannabis use, unspecified, uncomplicated; F41.1 Generalized anxiety disorder; F60.9 Personality disorder, unspecified; I10 Essential (primary) hypertension; Z88.8 Allergy status to other drugs, medicaments and biological substances; Z91.011 Allergy to milk products; F31.9 Bipolar disorder, unspecified
CPT/HCPCS: 36415; 71045; 76770; 80048; 81001; 81025; 82040; 83605; 85025; 87040; 87077; 87086; 87186; 93005; 96365; G0378; J0696; J1885; Q0162; J7030

== ENCOUNTER 2020-10-01 14:23 | Emergency (ER) | payer OTHER ==
[~2020-10-01] VITALS: Ht 167.6 cm; Wt 128.2 kg
[~2020-10-01 14:23] MED LIST changes: +CEFD300C37 PO; +FLUO20CA23 PO; -FLUO20CA8 PO; +KETO10TA PO; +ONDA4TAB13 SL; -PANT20TA3 PO; +PANT20TA4 PO; +RISP2TAB80 PO; +TRAZ-175 PO
[2020-10-01 14:26] VITALS: BP 122/92
--- NOTE | 2020-10-01 17:44 | NUR ---
Patient given discharge instructions and they have confirmed that they understand the instructions. Patient ambulatory with steady gait.
== END 2020-10-01 17:46 | disposition home or self-care (01) ==
LOC: ED 17:40
DX: B18.2 Chronic viral hepatitis C (principal); I10 Essential (primary) hypertension; E03.9 Hypothyroidism, unspecified; E66.9 Obesity, unspecified; Z68.42 Body mass index [BMI] 45.0-49.9, adult
CPT/HCPCS: 99281